=== PATIENT | female | born 1990 | race Caucasian/White ===

== ENCOUNTER 2019-01-01 19:15 | Observation (INO) | payer SELFPAY ==
[2019-01-01] MEDS ORDERED: Pantoprazole 40 MG VIAL ONE (19:57)
[2019-01-01 20:57] LABS: Pregnancy Test - Urine (BHCG) Negative (Negative); Specific Gravity 1.022 (1.002-1.036)
[2019-01-01 20:58] LABS: Pregu Control Background? CLEAR/WHITE (CLR/WHITE); Pregu Control Bar Appear? YES (CONTROL BAR)
[2019-01-01 21:07] LABS: Medtox Reader # READER 4
[2019-01-01 21:08] LABS: Amphetamine Not Detected (NotDetected); Barbiturates Screen Not Detected (NotDetected); Benzodiazepine Screen Detected (NotDetected); Cocaine Metabolite Screen Not Detected (NotDetected); Medtox Control Line Valid? VALID (VALID); Methadone Not Detected (NotDetected); Methamphetamine Not Detected (NotDetected); Opiate Screen Not Detected (NotDetected); Oxycodone Screen Not Detected (NotDetected); Phencyclidine (PCP) Not Detected (NotDetected); THC/Cannabinoid Screen Detected (NotDetected); Tricyclic Screen Not Detected (NotDetected)
[2019-01-01] MEDS ORDERED: Acetaminophen 650 MG Suppository PR PRN (21:55)
[2019-01-01] MEDS ORDERED: Ondansetron ODT 4 MG TAB PO PRN (21:55)
[2019-01-01] MEDS ORDERED: Prochlorperazine Edisylate 10 MG in Sodium Chloride 0.9% 50 ML IVPB SCH (22:15)
[2019-01-02 00:04] VITALS: BMI 33.9
[2019-01-02] MEDS ORDERED: Ketorolac Tromethamine 30 MG/ML VIAL IVP SCH (00:30)
[2019-01-02] MEDS ORDERED: diphenhydrAMINE 50 MG/ML VIAL IVP SCH (04:15)
[2019-01-02] MEDS ORDERED: diphenhydrAMINE 25 MG CAP PO SCH (04:15)
[2019-01-02] MEDS: Ondansetron PF 4 MG/2 ML Vial IVP PRN ×3 (04:17→17:18)
--- NOTE | 2019-01-02 07:23 | HP ---
PRIMARY CARE DOCTOR: The patient has no PCP. CODE STATUS: Full code. TIME OF EVALUATION: 8:25 p.m. CHIEF COMPLAINT: Abdominal pain. HISTORY OF PRESENT ILLNESS: The is a 28-year-old female patient with no significant medical problems; however, she has had similar abdominal pain, nausea, and vomiting in the past, and GI workup has been negative. The patient came to the hospital after having severe abdominal pain with no clear triggers and no alleviating factors, associated with nausea and intractable vomiting. The symptoms were severe as now, the patient has a history of using marijuana and the last dose was couple of days ago surprised this is marijuana withdrawal syndromes, although other causes needs to be ruled out. REVIEW OF SYSTEMS: CONSTITUTIONAL: No fever. No chills or generalized weakness. RESPIRATORY: No cough, sputum production, or shortness of breath. CARDIOVASCULAR: No chest pain. ABDOMEN: The patient has diffuse abdominal pain. EXTREMITIES: No significant findings reported. All other systems were reviewed and negative except for the findings mentioned above. PAST MEDICAL HISTORY: Negative. PAST SURGICAL HISTORY: The patient has no surgical history. PSYCHIATRIC HISTORY: The patient had no previous psych history. FAMILY HISTORY:Reviewed and non contributory to current presentation. SOCIAL HISTORY: The patient drinks socially. The patient abuses marijuana the patient used to smoke 5 cigarettes a day. KNOWN ALLERGIES: No known drug allergies. REPORTED MEDICATIONS: None. PHYSICAL EXAMINATION: VITAL SIGNS: On presentation, respiratory rate was 18, temperature 98.5, pain was 10, heart rate was 96. GENERAL APPEARANCE: The patient is alert and oriented, in no acute distress. HEENT: Eyes, normal conjunctivae. Moist oral mucosa. Anicteric. No JVD. RESPIRATORY: Bilateral air entry. No rales. No wheezes. Symmetric expansion. CARDIOVASCULAR: Normal rate, regular rhythm. No murmurs. No gallops. No edema. ABDOMEN: Soft. Normal bowel sounds. The patient has reportedly diffuse tenderness. EXTREMITIES: The patient has baseline range of motion and strength. Capillary refill seems to intact. NEUROLOGIC: No evidence of any new focal weakness. Cranial nerves seems to be intact. PSYCH: The patient is in good mood. No anxiety. Optimal judgment. LABORATORY DATA: Labs were reviewed. The urine tox was positive for benzodiazepines and cannabinoids. ASSESSMENT AND PLAN: The patient will be placed in the hospital with following medical problems; 1. Abdominal pain. This is severe and has been on and off, associated with continuous nausea and vomiting, that has been difficult to control. The patient smokes marijuana and most likely these are withdrawal symptoms, although other organic etiologies needs to be ruled out. We will monitor the patient and will treat symptomatically. If no improved, might need GI consultation for assistance with the patient. 2. Deep venous thrombosis prophylaxis. 3. Severe pain, needing opioid medication for optimal control. Job ID: [id number] [facility]
[2019-01-02 08:26] LABS: #Lymphocytes 1.2 thou/uL (1.20-3.40); #Neutrophils 9.7 thou/uL (1.40-6.50); %Basophils 0.2 % (0.0-1.0); %Eosinophils 0.1 % (0.0-10.0); %Lymphocytes 10.3 % (21.0-51.0); %Monocytes 8.7 % (0.0-10.0); %Neutrophils 80.8 % (42.0-75.0); Hemoglobin 14.5 g/dL (12.0-16.0); Mean Corpuscular HGB CONC 34.6 g/dL (32.0-36.0); Mean Corpuscular Hemoglobin 33.3 pg (27.0-31.0); Mean Corpuscular Volume 96.4 fL (78.0-98.0); Mean Platelet Volume 7.2 fL (7.4-10.4); Platelet Count 237 thou/uL (130-400); RBC Distribution Width 12.1 % (11.5-14.5); Red Blood Cell (RBC) Count 4.36 mill/uL (4.20-5.40)
[2019-01-02] MEDS: Ketorolac Tromethamine 30 MG/ML VIAL IVP SCH (08:33)
[2019-01-02] MEDS: Pantoprazole 40 MG VIAL IVP SCH ×2 (08:33→21:42)
[2019-01-02] MEDS: Sodium Chloride 0.45% 1,000 ML IV SCH ×3 (08:34→23:00)
[2019-01-02 08:39] LABS: Anion Gap 14 mmol/L (10-20); BUN (Urea Nitrogen) 7 mg/dL (7.0-18.7); Calc. Creatinine Clearance 213 mL/min (70-130); Calcium 9.4 mg/dL (7.8-10.44); Carbon Dioxide 23 mmol/L (22-29); Chloride 99 mmol/L (98-107); Estimated GFR-MDRD Greater than 90; Glucose 94 mg/dL (70-105); Sodium 133 mmol/L (136-145)
[2019-01-02] MEDS: Enoxaparin Sodium 40 MG/0.4 ML SYRINGE SC SCH (08:43)
--- NOTE | 2019-01-02 10:18 | PDOC.HOSPP ---
- Subjective Subjective: Nausea persists, but settling down. Pain in chest and abdomen from the vomiting. - Objective Vital Signs & Weight: Vital Signs (12 hours) Temp Pulse Resp BP BP Pulse Ox 01/02/19 07:33 98.2 F 85 20 155/98 H 100 01/02/19 04:00 98.2 F 88 16 151/88 H 99 01/01/19 23:20 98.0 F 65 16 163/91 H 100 Weight Weight 243 lb 3 oz I&O: 01/01/19 01/02/19 01/03/19 06:59 06:59 06:59 Intake Total 1750 Output Total 1999 Balance -250 Result Diagrams: 01/02/19 08:11 01/02/19 08:11 ROS - Medication Medications: Active Medications Generic Name Dose Route Start Last Admin Trade Name Freq PRN Reason Stop Dose Admin Enoxaparin Sodium 40 mg 01/02/19 09:00 01/02/19 08:43 Lovenox SC 40 mg 0900 SAMMIE Administration Sodium Chloride 1,000 mls @ 100 mls/hr 01/02/19 08:00 01/02/19 08:34 1/2 Normal Saline IV 1,000 mls .Q10H SAMMIE Administration Ketorolac Tromethamine 15 mg 01/02/19 08:00 01/02/19 08:33 Toradol IVP 01/07/19 08:01 15 mg NOW SAMMIE Administration Ondansetron HCl 4 mg 01/01/19 21:55 01/02/19 04:17 Zofran IVP 4 mg Q6H PRN Administration Nausea/Vomiting Pantoprazole Sodium 40 mg 01/02/19 09:00 01/02/19 08:33 Protonix IVP 40 mg Q12HR SAMMIE Administration Sodium Chloride 10 ml 01/02/19 09:00 01/02/19 08:35 Flush - Normal Saline IVF 10 ml Q12HR SAMMIE Administration - Exam awake alert, ill appearing General - other findings: Obese Heart: RRR, no murmur, no gallops, no rubs, normal peripheral pulses Respiratory: CTAB, no wheezes, no rales, no ronchi, normal chest expansion, no tachypnea, normal percussion Gastrointestinal: soft, non-distended, normal bowel sounds, no palpable masses, no hepatomegaly, no splenomegaly, no bruit Gastrointestinal - other findings: mildly, diffusely tender. Extremities: no cyanosis, no clubbing, no edema Skin: normal turgor, no lesions, no rashes Neurological: CN's grossly intact, normal sensation to touch, no weakness, no focal deficits, no new deficit Hosp A/P (1) Nausea & vomiting Code(s): R11.2 - NAUSEA WITH VOMITING, UNSPECIFIED Status: Acute (2) Chest pain Code(s): R07.9 - CHEST PAIN, UNSPECIFIED Status: Acute (3) Abdominal pain Code(s): R10.9 - UNSPECIFIED ABDOMINAL PAIN Status: Acute (4) Hypokalemia Code(s): E87.6 - HYPOKALEMIA Status: Acute - Plan EKG normal. Replete potassium. Continue IVF. PRN anti-emetics. Toradol. PPI. Doesn't sound like she uses marijuana frequently enough to be causing this.
[2019-01-02] MEDS: Acetaminophen 325 MG TAB PO PRN (10:47)
[2019-01-02] MEDS ORDERED: Potassium Chloride 40 MEQ in Sodium Chloride 0.9% 500 ML IVPB SCH (11:00)
[2019-01-02] MEDS ORDERED: Lidocaine 2% Viscous Solution 10 ML, Aluminum & Magnesium Hydroxide 30 ML SSW SCH ×2 (13:00→18:00)
[2019-01-02] MEDS: Morphine 2 MG/ML SYRINGE SLOW IVP PRN ×3 (13:13→21:42)
[2019-01-02] MEDS: Promethazine HCl 25 MG/ML VIAL IM/IV PRN ×2 (13:14→18:49)
--- NOTE | 2019-01-02 14:33 | PDOC.EVN ---
Event Note - Event Note Event Note: She continues to have pain at 8/10 in spite of meds. Adding GI cocktail. Ordering US of RUQ and D-dimer. Will await results. May need CT chest, abdomen , pelvis, but will wait to see if she needs CTA. Consult GI.
--- NOTE | 2019-01-02 15:38 | ULT ---
Gallbladder ultrasound: Multiple grayscale images of right upper quadrant obtained according to protocol. INDICATION: Pain FINDINGS: Liver: Hepatic steatosis. Gallbladder: Normal Gallbladder wall: Normal. Brito's Sign: Negative Common bile duct is normal. Ascites: None IMPRESSION: Normal gallbladder. Hepatic steatosis. Correlate with liver function enzymes.
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
[2019-01-02] MEDS ORDERED: Mag-Al 1200 mg/1200 mg/30 ML UDCUP PO PRN (23:38)
[2019-01-03] MEDS: Promethazine HCl 25 MG/ML VIAL IM/IV PRN ×2 (00:31→08:38)
[2019-01-03] MEDS: Sodium Chloride 0.45% 1,000 ML IV SCH ×3 (04:00→22:32)
[2019-01-03 04:08] LABS: #Lymphocytes 0.9 thou/uL (1.20-3.40); #Monocytes 0.6 thou/uL (0.11-0.59); #Neutrophils 8.2 thou/uL (1.40-6.50); %Basophils 0.1 % (0.0-1.0); %Eosinophils 0.1 % (0.0-10.0); %Lymphocytes 9.1 % (21.0-51.0); %Monocytes 5.8 % (0.0-10.0); %Neutrophils 84.9 % (42.0-75.0); Mean Corpuscular HGB CONC 34.5 g/dL (32.0-36.0); Mean Corpuscular Volume 95.7 fL (78.0-98.0); Mean Platelet Volume 7.4 fL (7.4-10.4); Platelet Count 241 thou/uL (130-400); RBC Distribution Width 11.9 % (11.5-14.5); Red Blood Cell (RBC) Count 4.56 mill/uL (4.20-5.40); White Blood Cell (WBC) Count 9.7 thou/uL (4.8-10.8)
[2019-01-03 04:18] LABS: ALT (SGPT) 38 U/L (8-55); AST (SGOT) 31 U/L (5-34); Albumin 4.2 g/dL (3.5-5.0); Alkaline Phosphatase 74 U/L (40-150); Anion Gap 15 mmol/L (10-20); BUN (Urea Nitrogen) 7 mg/dL (7.0-18.7); Bilirubin, Total 0.6 mg/dL (0.2-1.2); Calc. Creatinine Clearance 222 mL/min (70-130); Calcium 9.5 mg/dL (7.8-10.44); Carbon Dioxide 20 mmol/L (22-29); Chloride 99 mmol/L (98-107); Estimated GFR-MDRD Greater than 90; Globulin 2.7 g/dL (2.4-3.5); Glucose 95 mg/dL (70-105); Lipase 4 U/L (8-78); Potassium 3.8 mmol/L (3.5-5.1); Protein, Total 6.9 g/dL (6.0-8.3); Sodium 130 mmol/L (136-145)
[2019-01-03] MEDS: Morphine 2 MG/ML SYRINGE SLOW IVP PRN ×5 (05:38→22:28)
[2019-01-03] MEDS: Ondansetron PF 4 MG/2 ML Vial IVP PRN ×2 (05:38→15:41)
[2019-01-03] MEDS ORDERED: Ketorolac Tromethamine 30 MG/ML VIAL ONE (08:36)
[2019-01-03] MEDS: Ketorolac Tromethamine 30 MG/ML VIAL IVP SCH (08:41)
[2019-01-03] MEDS ORDERED: Morphine 2 MG/ML SYRINGE SLOW IVP SCH ×2 (09:00→12:00)
[2019-01-03] MEDS: Enoxaparin Sodium 40 MG/0.4 ML SYRINGE SC SCH (09:00)
[2019-01-03] MEDS ORDERED: Ketorolac Tromethamine 30 MG/ML VIAL IVP PRN (15:00)
[2019-01-03] MEDS ORDERED: Promethazine HCl 25 MG/ML VIAL SLOW IVP PRN (15:00)
[2019-01-03] MEDS ORDERED: Meperidine HCl/PF 25 MG/ML VIAL SLOW IVP PRN (15:00)
[2019-01-03] MEDS ORDERED: Ondansetron HCl/PF 4 MG/2 ML Vial IVP PRN (15:00)
[2019-01-03] MEDS ORDERED: Promethazine HCl 25 MG/ML VIAL IM PRN (15:00)
[2019-01-03] MEDS ORDERED: Promethazine HCl 25 MG/ML VIAL ONE (15:02)
[2019-01-03] MEDS: Pantoprazole 40 MG VIAL IVP SCH ×2 (15:26→22:28)
[2019-01-03] MEDS ORDERED: Lidocaine 2% Viscous Solution 10 ML, Aluminum & Magnesium Hydroxide 30 ML SSW PRN (16:08)
--- NOTE | 2019-01-03 16:28 | OP ---
DATE OF PROCEDURE: 01/03/2019 INDICATIONS FOR PROCEDURE: Nausea, vomiting, and midepigastric abdominal pain. DESCRIPTION OF PROCEDURE: After the risks and benefits of the procedure were explained to the patient including risks of bleeding, infection, perforation, reactions to anesthesia, aspiration and/or pain, informed consent was obtained. The patient was then taken to the endoscopy suite, where deep sedation was administered via propofol and anesthesia support. Once adequate sedation was achieved, the standard gastroscope was introduced into the mouth with intubation of the esophagus, stomach, and the proximal small intestines with the findings listed below. The patient tolerated the procedure well with no immediate perioperative complications. Upon conclusion of the procedure, the patient was transferred to PACU in satisfactory condition. FINDINGS: Esophagus: A 2 cm ovoid patch of salmon-colored mucosa was seen in the proximal esophagus consistent with an inlet patch. There was no evidence of erosions or stricture formation adjacent to this area. Normal-appearing mucosa was then seen in the middle esophagus. However, multiple linear erosions were seen in the distal esophagus extending proximally from the GE junction to a maximal length of about 7 to 8 cm proximally. These ulcers did not exhibit any high-risk stigmata of active or recent bleeding and these ulcerations did not extend between esophageal folds. Otherwise, there was no evidence of mass, lesions, or active/recent bleeding. Stomach: Normal-appearing mucosa was seen in the gastric cardia, fundus, body, greater curvature, antrum, and incisura. There was no evidence of erosions, ulcerations, mass, lesions, or active/recent bleeding. Duodenum: Normal-appearing mucosa was seen in both the duodenal bulb and second portion of the duodenum. There was no evidence of erosions, ulcerations, mass, lesions, or active/recent bleeding. IMPRESSION: 1. A 2 cm inlet patch to the proximal esophagus that does not appear biologically active. 2. LA grade B reflux mediated erosive esophagitis (most likely due to repeated episodes of nausea and vomiting). 3. No etiology for the patient's nausea and vomiting seen during this examination. RECOMMENDATIONS: 1. Would continue the patient on aggressive antiemetic regimen for her nausea and vomiting and with findings listed today. 2. Would continue pantoprazole 40 mg b.i.d. 3. Highly recommend cessation of marijuana as it could contribute to her current constellation of symptoms. 4. Could consider a gastric emptying study if deemed clinically appropriate (although the patient's clinical history does not match this at this diagnosis at this time). We will continue to follow. Please call with any questions. Job ID: [id number]
--- NOTE | 2019-01-03 16:35 | PDOC.HOSPP ---
- Subjective Subjective: Continues to have some pain. Pain in the esophagus, but also in the chest and abdomen. She believes it is all from the vomiting. - Objective Vital Signs & Weight: Vital Signs (12 hours) Temp Pulse Resp BP BP Pulse Ox 01/03/19 15:34 98.1 F 77 20 145/100 H 01/03/19 08:31 97.6 F 74 18 152/99 H 97 Weight Admit Weight 243 lb Weight 243 lb I&O: 01/02/19 01/03/19 01/04/19 06:59 06:59 06:59 Intake Total 1750 1500 Output Total 1999 Balance -250 1500 Result Diagrams: 01/03/19 03:43 01/03/19 03:43 ROS - Medication Medications: Active Medications Generic Name Dose Route Start Last Admin Trade Name Freq PRN Reason Stop Dose Admin Acetaminophen 650 mg 01/01/19 21:55 01/02/19 10:47 Tylenol PO 650 mg Q4H PRN Administration Headache/Fever/Mild Pain (1-3) Enoxaparin Sodium 40 mg 01/02/19 09:00 01/03/19 09:00 Lovenox SC Not Given 0900 [facility] Sodium Chloride 1,000 mls @ 100 mls/hr 01/02/19 08:00 01/03/19 15:26 1/2 Normal Saline IV 1,000 mls .Q10H SAMMIE Administration Ketorolac Tromethamine 15 mg 01/02/19 08:00 01/03/19 08:41 Toradol IVP 01/07/19 08:01 Not Given NOW SAMMIE Morphine Sulfate 2 mg 01/02/19 12:36 01/03/19 15:38 Morphine SLOW IVP 2 mg Q4H PRN Administration Moderate to Severe Pain (6-10) Ondansetron HCl 4 mg 01/01/19 21:55 01/03/19 15:41 Zofran IVP 4 mg Q6H PRN Administration Nausea/Vomiting Pantoprazole Sodium 40 mg 01/02/19 09:00 01/03/19 15:26 Protonix IVP 40 mg Q12HR SAMMIE Administration Promethazine HCl 12.5 mg 01/02/19 12:36 01/03/19 08:38 Phenergan IM/IV 12.5 mg Q6H PRN Administration Nausea/Vomiting Sodium Chloride 10 ml 01/02/19 09:00 01/03/19 09:00 Flush - Normal Saline IVF Not Given Q12HR SAMMIE Sodium Chloride 10 ml 01/02/19 16:02 01/03/19 05:39 Flush - Normal Saline IVF 10 ml PRN PRN Administration Saline Flush - Exam NAD, awake alert General - other findings: Obese Heart: RRR, no murmur, no gallops, no rubs, normal peripheral pulses Respiratory: CTAB, no wheezes, no rales, no ronchi, normal chest expansion, no tachypnea, normal percussion Gastrointestinal: soft, non-tender, non-distended, normal bowel sounds, no palpable masses, no hepatomegaly, no splenomegaly, no bruit Extremities: no cyanosis, no clubbing, no edema Musculoskeletal - other findings: Generalized TTP over the chest and abdominal wall. Psychiatric: normal affect, normal behavior, A&O x 3 Hosp A/P (1) Nausea & vomiting Code(s): R11.2 - NAUSEA WITH VOMITING, UNSPECIFIED Status: Acute (2) Chest pain Code(s): R07.9 - CHEST PAIN, UNSPECIFIED Status: Acute (3) Abdominal pain Code(s): R10.9 - UNSPECIFIED ABDOMINAL PAIN Status: Acute (4) Hypokalemia Code(s): E87.6 - HYPOKALEMIA Status: Acute (5) Esophageal erosions Code(s): K22.10 - ULCER OF ESOPHAGUS WITHOUT BLEEDING Status: Acute - Plan PRN anti-emetics. PPI. Discussed with GI. Has some distal esophageal erosions/ulcerations. Likely due to the vomiting. Will continue PRN GI cocktail, add carafate. Could be related to marijuana use, but per her history may not be using enough of it to be meaningful. Add oral pain meds. Recheck labs in am. If she can be managed with po meds, she can DC in am.
[2019-01-03] MEDS: traMADol HCl 50 MG TAB PO PRN ×2 (16:39→20:18)
[2019-01-03] MEDS: Acetaminophen 325 MG TAB PO PRN (16:40)
[2019-01-03] MEDS: Sucralfate 1 GM TAB PO SCH ×2 (16:44→22:33)
[2019-01-03] MEDS ORDERED: Amlodipine 5 MG TAB PO SCH (17:30)
[2019-01-03] MEDS ORDERED: Ketorolac Tromethamine 30 MG/ML VIAL IVP SCH (18:45)
[2019-01-03] MEDS ORDERED: Fentanyl 100 MCG/2 ML VIAL ONE (18:55)
[2019-01-04 03:50] LABS: #Lymphocytes 2.1 thou/uL (1.20-3.40); #Neutrophils 5.8 thou/uL (1.40-6.50); %Basophils 0.3 % (0.0-1.0); %Eosinophils 0.4 % (0.0-10.0); %Lymphocytes 23.9 % (21.0-51.0); %Monocytes 10.6 % (0.0-10.0); %Neutrophils 64.8 % (42.0-75.0); Hemoglobin 14.8 g/dL (12.0-16.0); Mean Corpuscular HGB CONC 33.9 g/dL (32.0-36.0); Mean Corpuscular Hemoglobin 32.2 pg (27.0-31.0); Mean Corpuscular Volume 94.9 fL (78.0-98.0); Mean Platelet Volume 7.2 fL (7.4-10.4); Platelet Count 226 thou/uL (130-400); RBC Distribution Width 11.8 % (11.5-14.5); Red Blood Cell (RBC) Count 4.59 mill/uL (4.20-5.40); White Blood Cell (WBC) Count 8.9 thou/uL (4.8-10.8)
[2019-01-04 04:15] LABS: Anion Gap 12 mmol/L (10-20); BUN (Urea Nitrogen) 8 mg/dL (7.0-18.7); CK (CPK) 13 U/L (29-168); Calc. Creatinine Clearance 229 mL/min (70-130); Calcium 9.4 mg/dL (7.8-10.44); Carbon Dioxide 24 mmol/L (22-29); Chloride 101 mmol/L (98-107); Estimated GFR-MDRD Greater than 90; Glucose 83 mg/dL (70-105); Potassium 3.3 mmol/L (3.5-5.1); Sodium 134 mmol/L (136-145)
[2019-01-04] MEDS: Morphine 2 MG/ML SYRINGE SLOW IVP PRN (06:54)
[2019-01-04] MEDS ORDERED: Potassium Chloride 10 MEQ TAB PO SCH (08:45)
[2019-01-04] MEDS: Pantoprazole 40 MG VIAL IVP SCH (09:07)
[2019-01-04] MEDS: Sucralfate 1 GM TAB PO SCH ×2 (09:07→12:56)
[2019-01-04] MEDS: Enoxaparin Sodium 40 MG/0.4 ML SYRINGE SC SCH (10:27)
--- NOTE | 2019-01-04 10:37 | DIS ---
DATE OF ADMISSION: 01/01/2019 DATE OF DISCHARGE: 01/04/2019 DISCHARGE DISPOSITION: Home. FOLLOWUP: 1. Follow up with primary care physician in 1 week. Please note that patient does not have a PCP at this time. She was advised to follow up with [facility]. 2. Follow up with Gastroenterology, Dr. Mauro in 2 to 3 weeks. ALLERGIES: NO KNOWN DRUG ALLERGIES. THE PATIENT WAS SEEN AND EXAMINED ON THE DAY OF DISCHARGE. DENIES ANY NEW COMPLAINTS. NO NAUSEA OR VOMITING. SHE IS TOLERATING DIET. INPATIENT PROCEDURES: On 03 January 2019, the patient underwent an EGD that showed grade B reflux-mediated erosive esophagitis due to repeated episodes of nausea and vomiting. BRIEF HOSPITAL COURSE: The patient is a 28-year-old female with no significant past medical history, presented to the hospital with abdominal discomfort along with nausea and vomiting. Please refer to the history and physical for further details. The patient was admitted to the medical floor with a diagnosis of nausea and vomiting along with abdominal pain of unclear etiology. An abdominal ultrasound was performed that showed normal gallbladder with hepatic steatosis. She was evaluated by Gastroenterology and underwent EGD as discussed above. She has been started on PPIs. Nausea and vomiting had resolved. She was found to have electrolyte abnormalities, which were replaced. She will benefit from a basic metabolic profile in 1 week. She appears stable for discharge. SIGNIFICANT LABORATORY DATA: Sodium on the day of discharge is 134 with potassium 3.3, lowest potassium was 3.0. WBC on admission was 12, at discharge is 8.9. D-dimer was negative. Urine drug screen is positive for cannabis and benzodiazepines. Abdominal ultrasound as discussed above. FINAL DIAGNOSES: 1. Nausea and vomiting with abdominal discomfort of unclear etiology. 2. Grade B reflux-mediated erosive esophagitis. The patient has been started on PPIs. 3. Hyponatremia/hypokalemia. 4. Obesity with a BMI of 33.9. PLAN: Plan of care was discussed with the patient in detail, she stated understanding. Job ID: [id number]
[2019-01-04 11:11] VITALS: BP 120/85; TEMP 97.9
[2019-01-04] MEDS: Sodium Chloride 0.45% 1,000 ML IV SCH (12:55)
== END 2019-01-04 13:03 | disposition home or self-care (01) ==
LOC: ERS 19:15 → ONC 19:53
PROVIDERS: ADMIT Hospitalist; ATTEND Hospitalist
PROC: 0DJ08ZZ Inspection of Upper Intestinal Tract, Via Natural or Artificial Opening Endoscopic (ICD-10-PCS; principal; 2019-01-04)
DX: K21.0 Gastro-esophageal reflux disease with esophagitis (principal); E87.1 Hypo-osmolality and hyponatremia; E87.6 Hypokalemia; E66.9 Obesity, unspecified; K76.0 Fatty (change of) liver, not elsewhere classified; Z68.33 Body mass index [BMI] 33.0-33.9, adult; Z79.899 Other long term (current) drug therapy; Z87.891 Personal history of nicotine dependence
CPT/HCPCS: 36415; 76705; 80048; 80053; 80306; 81025; 82550; 83690; 85025; 85379; 93005; 93010; 96361; 96365; 96372; 96375; 96376; C9113; G0378; J0780; J1200; J1650; J1885; J2270; J2405; J2550; J3010; J3480; J7050

== ENCOUNTER 2022-09-18 10:52 | Inpatient (IN) | payer SELFPAY ==
[2022-09-18 12:37] LABS: #Lymphocytes 0.5 thou/uL (1.20-3.40); #Monocytes 0.3 thou/uL (0.11-0.59); #Neutrophils 10.7 thou/uL (1.40-6.50); %Eosinophils 0.1 % (0.0-10.0); %Lymphocytes 4.7 % (21.0-51.0); %Monocytes 2.9 % (0.0-10.0); %Neutrophils 92.3 % (42.0-75.0); Hemoglobin 14.9 g/dL (12.0-16.0); Mean Corpuscular Hemoglobin 34.3 pg (27.0-31.0); Mean Platelet Volume 7.7 fL (7.4-10.4); Platelet Count 221 10x3/uL (130-400); RBC Distribution Width 11.8 % (11.5-14.5); Red Blood Cell (RBC) Count 4.35 mill/uL (4.20-5.40); White Blood Cell (WBC) Count 11.6 10x3/uL (4.8-10.8)
[2022-09-18 13:05] LABS: ALT (SGPT) 162 U/L (8-55); AST (SGOT) 102 U/L (5-34); Albumin 4.5 g/dL (3.5-5.0); Alkaline Phosphatase 85 U/L (40-110); Anion Gap 18 mmol/L (10-20); BUN (Urea Nitrogen) 4 mg/dL (7.0-18.7); Bilirubin, Total 0.6 mg/dL (0.2-1.2); Calc. Creatinine Clearance 0 mL/min (70-130); Calcium 9.8 mg/dL (7.8-10.44); Carbon Dioxide 16 mmol/L (22-29); Chloride 104 mmol/L (98-107); Estimated GFR 118; Globulin 3.3 g/dL (2.4-3.5); Glucose 119 mg/dL (70-105); Lipase 92 U/L (8-78); Magnesium 1.9 mg/dL (1.6-2.6); Potassium 3.8 mmol/L (3.5-5.1); Protein, Total 7.8 g/dL (6.0-8.3); Sodium 134 mmol/L (136-145)
[2022-09-18] MEDS ORDERED: Electrolyte Replacement Protocol FS SCH (13:15)
[2022-09-18] MEDS ORDERED: Calcium Carbonate 500 MG ChewTAB PO PRN (13:26)
[2022-09-18] MEDS ORDERED: Acetaminophen 325 MG TAB PO PRN (13:26)
[2022-09-18] MEDS ORDERED: Ondansetron PF 4 MG/2 ML Vial IVP PRN (13:26)
[2022-09-18] MEDS ORDERED: Ondansetron ODT 4 MG TAB PO PRN (13:26)
[2022-09-18 14:19] VITALS: BMI 33.5
[2022-09-18] MEDS ORDERED: Pantoprazole 40 MG VIAL IVP SCH (14:30)
[2022-09-18 16:31] LABS: Troponin I Less than 0.010 ng/mL (< 0.028)
[2022-09-18] MEDS: D5 LR w/20 mEq KCL 1,000 ML IV SCH ×2 (17:39→20:08)
[2022-09-18] MEDS: Promethazine HCl 25 MG in Sodium Chloride 0.9% 50 ML IVPB PRN (20:08)
[2022-09-18] MEDS: Pantoprazole 40 MG VIAL IVP SCH (20:08)
[2022-09-18] MEDS ORDERED: Lidocaine 2% Viscous Solution 10 ML, Aluminum & Magnesium Hydroxide 30 ML SSW PRN (20:52)
[2022-09-18] MEDS ORDERED: Ketorolac Tromethamine 30 MG/ML VIAL IVP PRN (20:54)
[2022-09-18] MEDS ORDERED: Magnesium 2 GM/50 ML(in water) 2 GM in Premix Bag 1 BAG IVPB SCH (21:00)
[2022-09-18] MEDS ORDERED: Heparin 5,000 UNITS/ML VIAL SC SCH (21:00)
[2022-09-18] MEDS: Folic Acid 1 MG TAB PO SCH (21:45)
[2022-09-18] MEDS: Cyanocobalamin (Vitamin B-12) 1,000 MCG TAB PO SCH (21:45)
[2022-09-19] MEDS: D5 LR w/20 mEq KCL 1,000 ML IV SCH (01:31)
[2022-09-19 06:25] LABS: #Monocytes 1.2 thou/uL (0.11-0.59); #Neutrophils 9.6 thou/uL (1.40-6.50); %Basophils 0.2 % (0.0-1.0); %Eosinophils 0.2 % (0.0-10.0); %Lymphocytes 8.5 % (21.0-51.0); %Monocytes 9.8 % (0.0-10.0); %Neutrophils 81.3 % (42.0-75.0); Mean Corpuscular HGB CONC 35.3 g/dL (32.0-36.0); Mean Corpuscular Hemoglobin 35.4 pg (27.0-31.0); Mean Platelet Volume 7.7 fL (7.4-10.4); Platelet Count 238 10x3/uL (130-400); RBC Distribution Width 11.9 % (11.5-14.5); Red Blood Cell (RBC) Count 4.23 mill/uL (4.20-5.40); White Blood Cell (WBC) Count 11.8 10x3/uL (4.8-10.8)
[2022-09-19 06:48] LABS: ALT (SGPT) 159 U/L (8-55); AST (SGOT) 132 U/L (5-34); Albumin 3.9 g/dL (3.5-5.0); Alkaline Phosphatase 73 U/L (40-110); Anion Gap 12 mmol/L (10-20); BUN (Urea Nitrogen) 4 mg/dL (7.0-18.7); Bilirubin, Total 0.6 mg/dL (0.2-1.2); Calc. Creatinine Clearance 210 mL/min (70-130); Calcium 9.3 mg/dL (7.8-10.44); Carbon Dioxide 22 mmol/L (22-29); Chloride 105 mmol/L (98-107); Estimated GFR 119; Globulin 2.9 g/dL (2.4-3.5); Glucose 139 mg/dL (70-105); Lipase 9 U/L (8-78); Magnesium 2.4 mg/dL (1.6-2.6); Phosphorus 1.6 mg/dL (2.3-4.7); Potassium 3.7 mmol/L (3.5-5.1); Protein, Total 6.8 g/dL (6.0-8.3); Sodium 135 mmol/L (136-145)
[2022-09-19] MEDS: PHOS-NAK 1 PKT PACK PO SCH ×2 (08:17→12:06)
[2022-09-19] MEDS: Pantoprazole 40 MG VIAL IVP SCH (08:18)
[2022-09-19] MEDS: Promethazine HCl 25 MG in Sodium Chloride 0.9% 50 ML IVPB PRN (08:21)
[2022-09-19] MEDS ORDERED: Ondansetron PF 4 MG/2 ML Vial IVP PRN (08:28)
[2022-09-19] MEDS ORDERED: Famotidine 20 MG TAB PO SCH (09:00)
[2022-09-19] MEDS ORDERED: Non-Formulary Item 1 EACH (Omeprazole [Omeprazole] 20 MG Capsule.Dr) PO SCH (09:00)
[2022-09-19] MEDS: Folic Acid 1 MG TAB PO SCH (20:27)
[2022-09-19] MEDS: Cyanocobalamin (Vitamin B-12) 1,000 MCG TAB PO SCH (20:27)
[2022-09-19] MEDS: Ketorolac Tromethamine 30 MG/ML VIAL IVP PRN (20:50)
[2022-09-20] MEDS: Ketorolac Tromethamine 30 MG/ML VIAL IVP PRN ×2 (02:10→08:41)
[2022-09-20 12:44] VITALS: BP 150/106; TEMP 97.6
== END 2022-09-20 15:48 | disposition home or self-care (01) | DRG 392 ==
LOC: ERS 10:52 → T4-A 14:09 → OBSVTOIN 09-19 11:30
PROVIDERS: ADMIT Internal Medicine; ATTEND Internal Medicine
DX: R11.2 Nausea with vomiting, unspecified (principal); E87.20 Acidosis, unspecified; E87.1 Hypo-osmolality and hyponatremia; F14.10 Cocaine abuse, uncomplicated; K21.9 Gastro-esophageal reflux disease without esophagitis; E86.0 Dehydration; R94.5 Abnormal results of liver function studies; K76.0 Fatty (change of) liver, not elsewhere classified; E66.9 Obesity, unspecified; D75.89 Other specified diseases of blood and blood-forming organs; F12.19 Cannabis abuse with unspecified cannabis-induced disorder; T73.0XXA Starvation, initial encounter; E88.89 Other specified metabolic disorders; Z79.899 Other long term (current) drug therapy; Z90.11 Acquired absence of right breast and nipple; Z87.891 Personal history of nicotine dependence; Z98.890 Other specified postprocedural states; Z68.33 Body mass index [BMI] 33.0-33.9, adult
CPT/HCPCS: 36415; 80053; 82010; 83605; 83690; 83735; 84100; 84484; 85025; 93005; 93010; 96372; 96374; 96375; 96376; C9113; G0378; J0780; J1650; J1885; J2405; J2550; J3475; J3480